=== PATIENT | female | born 1980 | race Caucasian/White ===

== ENCOUNTER 2022-04-24 08:32 | Emergency (ER) | payer BC ==
[2022-04-24] MEDS ORDERED: Morphine 2 MG/ML SYRINGE IVPUSH ONE (08:46)
[2022-04-24] MEDS ORDERED: Sodium Chloride 0.9% 10 ML Syringe FLUSH PRN (08:46)
[2022-04-24] MEDS ORDERED: Iopamidol 612 MG/ML 100 ML Bottle IVPUSH ONE (08:46)
[2022-04-24] MEDS ORDERED: Ondansetron 4 MG/2 ML SDV IVPUSH ONE (08:46)
[2022-04-24] MEDS ORDERED: Sodium Chloride 0.9% 1,000 ML IV ONE (08:49)
[2022-04-24 09:15] LABS: ANION GAP 15.4 mEq/L (7-13); CHLORIDE,CL 99 mmol/L (98-107); SODIUM,NA 133 mmol/L (136-145)
[2022-04-24 09:21] LABS: ESTIMATED GFR 64 mL/min (>=60)
[2022-04-24] MEDS ORDERED: Cefepime 2 GM Vial IVPUSH ONE (10:03)
== END 2022-04-24 11:22 ==
LOC: MERGE 08:32 → DL.ED 08:32
DX: K35.30 Acute appendicitis with localized peritonitis, without perforation or gangrene (principal); Z88.0 Allergy status to penicillin
CPT/HCPCS: 36415; 74177; 80053; 81001; 83690; 84703; 85025; 96361; 96374; 96375; 99285; J0692; J2270; J2405; J3490; J7030; Q9967